=== PATIENT | female | born 1935 | race Caucasian/White ===

== ENCOUNTER 2017-08-30 15:57 | Outpatient (CLI) | payer MEDICARE, BC ==
--- NOTE | 2017-08-30 16:40 | ULT ---
LEFT LOWER EXTREMITY VENOUS ULTRASOUND WITH DOPPLER: History Left lower extremity edema. COMPARISON: None. TECHNIQUE: Quinonez scale, color flow, Doppler imaging with spectral waveform analysis of the left lower extremity v enous system. FINDINGS: There is compressibility, presence of flow, and augmentation of the common femoral vein, femoral vein , and popliteal vein. There is flow in the greater saphenous vein, profunda vein, and posterior tibi al vein. IMPRESSION: No evidence of thrombus in the left lower extremity deep venous system. POS: [facility]
== END 2017-08-30 15:58 | disposition home or self-care (01) ==
LOC: ULT 15:57
PROVIDERS: ATTEND Family Medicine
DX: R60.0 Localized edema (principal)

== ENCOUNTER 2017-09-09 10:26 | Outpatient (CLI) | payer MEDICARE, BC | END 2017-09-09 10:27 | disposition home or self-care (01) | LOC: BICRAD 10:26 | PROVIDERS: ATTEND Family Medicine | DX: S93.602A Unspecified sprain of left foot, initial encounter (principal) ==

== ENCOUNTER 2018-05-19 10:12 | Outpatient (CLI) | payer MEDICARE, BC ==
--- NOTE | 2018-05-19 10:50 | RAD ---
LUMBAR SPINE THREE VIEWS: History: Fall. Back injury. Comparison: MRI exam from 11-18-12 FINDINGS: There are five lumbar type vertebra. Severe rightward convex rotatory scoliotic curvature is apparent . Partial compression of T12 is greater than on the 2013 MRI exam. Mild compression of L1 and L2, fav ored to be chronic. Prominent osteophytosis throughout the vertebral bodies and facets. Osseous struc tures are demineralized. IMPRESSION: 1. Multilevel vertebral compressions of the lower thoracic and upper lumbar spine. Age indeterminate. Severe degenerative changes preclude optimal evaluation. Vertebral plana is suspected at T12. 2. Osteoporosis. POS: [facility]
== END 2018-05-19 10:13 | disposition home or self-care (01) ==
LOC: BICRAD 10:12
PROVIDERS: ATTEND Family Medicine
DX: M54.5 Low back pain (principal); M81.0 Age-related osteoporosis without current pathological fracture; G95.20 Unspecified cord compression
CPT/HCPCS: 72080

== ENCOUNTER 2018-10-14 09:00 | Outpatient (CLI) | payer BC, MEDICARE ==
--- NOTE | 2018-10-14 09:42 | RAD ---
CHEST TWO VIEWS: HISTORY: Heart murmur. FINDINGS: The heart size appears slightly enlarged. There are atherosclerotic changes of the aorta. The lungs are clear of infiltrates. There is scoliotic change in the spine. The bones are demineralized. The re are some multilevel compression changes noted. IMPRESSION: 1. Cardiomegaly. 2. Severe scoliosis. POS: [facility]
== END 2018-10-14 09:01 | disposition home or self-care (01) ==
LOC: RAD 09:00
PROVIDERS: ATTEND Internal Medicine Cardiovascular Disease
DX: R01.1 Cardiac murmur, unspecified (principal); I35.1 Nonrheumatic aortic (valve) insufficiency; I51.7 Cardiomegaly; M41.9 Scoliosis, unspecified
CPT/HCPCS: 36415; 71046; 80053; 80061

== ENCOUNTER 2019-12-20 14:08 | Outpatient (CLI) | payer BC, MEDICARE | END 2019-12-20 14:09 | disposition home or self-care (01) | LOC: CTENTCT 14:08 | PROVIDERS: ATTEND Specialist | DX: J34.89 Other specified disorders of nose and nasal sinuses (principal) | CPT/HCPCS: 70486 ==

== ENCOUNTER 2021-02-21 13:27 | Inpatient (IN) | payer OTHER, MEDICARE, BC ==
[2021-02-21] MEDS ORDERED: Ondansetron PF 4 MG/2 ML Vial IVP PRN (14:47)
[2021-02-21] MEDS ORDERED: Dextrose 50% Abboject 50 ML SYRINGE SLOW IVP PRN (14:47)
[2021-02-21] MEDS ORDERED: Ondansetron ODT 4 MG TAB PO PRN (14:47)
[2021-02-21] MEDS ORDERED: Dextrose 5% in Water 1,000 ML IV PRN (14:47)
[2021-02-21] MEDS ORDERED: hydrALAZINE 20 MG/ML VIAL SLOW IVP PRN (14:47)
[2021-02-21] MEDS ORDERED: Sodium Chloride 0.9% 1,000 ML IV SCH (15:00)
[2021-02-21 15:33] VITALS: BMI 18.0
[2021-02-21 15:46] LABS: ALT (SGPT) 12 U/L (8-55); AST (SGOT) 19 U/L (5-34); Alkaline Phosphatase 55 U/L (40-110); Anion Gap 15 mmol/L (10-20); BUN (Urea Nitrogen) 16 mg/dL (9.8-20.1); Bilirubin, Total 0.6 mg/dL (0.2-1.2); Calc. Creatinine Clearance 43 mL/min (70-130); Carbon Dioxide 19 mmol/L (23-31); Chloride 109 mmol/L (98-107); Globulin 1.7 g/dL (2.4-3.5); Glucose 172 mg/dL (83-110); Phosphorus 3.8 mg/dL (2.3-4.7); Protein, Total 4.7 g/dL (5.8-8.1); Sodium 139 mmol/L (136-145)
[2021-02-21 16:39] LABS: #Lymphocytes 0.8 thou/uL (1.20-3.40); #Monocytes 0.8 thou/uL (0.11-0.59); #Neutrophils 16.1 thou/uL (1.40-6.50); %Basophils 0.1 % (0.0-1.0); %Eosinophils 0.1 % (0.0-10.0); %Lymphocytes 4.5 % (21.0-51.0); %Monocytes 4.4 % (0.0-10.0); Hemoglobin 8.3 g/dL (12.0-16.0); Mean Corpuscular Hemoglobin 32.8 pg (27.0-31.0); Mean Corpuscular Volume 99.3 fL (78.0-98.0); Mean Platelet Volume 7.2 fL (7.4-10.4); Platelet Count 232 thou/uL (130-400); RBC Distribution Width 11.3 % (11.5-14.5); Red Blood Cell (RBC) Count 2.54 mill/uL (4.20-5.40); White Blood Cell (WBC) Count 17.7 thou/uL (4.8-10.8)
[2021-02-21] MEDS ORDERED: Morphine 4 MG/ML VIAL SLOW IVP PRN (16:43)
[2021-02-21 16:56] LABS: INR-International Normal Ratio 1.2; Prothrombin Time 15.7 sec (12.0-14.7)
[2021-02-21 16:57] LABS: PTT 25.9 sec (22.9-36.1)
[2021-02-21] MEDS: Sodium Chloride 0.9% 1,000 ML IV SCH (19:09)
[2021-02-21] MEDS: Famotidine 20 MG TAB PO SCH (22:06)
[2021-02-22] MEDS: Sodium Chloride 0.9% 1,000 ML IV SCH (02:37)
[2021-02-22 04:33] LABS: ALT (SGPT) 11 U/L (8-55); AST (SGOT) 21 U/L (5-34); Albumin 2.8 g/dL (3.4-4.8); Alkaline Phosphatase 45 U/L (40-110); Anion Gap 14 mmol/L (10-20); BUN (Urea Nitrogen) 21 mg/dL (9.8-20.1); Bilirubin, Total 0.8 mg/dL (0.2-1.2); Calc. Creatinine Clearance 45 mL/min (70-130); Calcium 7.9 mg/dL (7.8-10.44); Carbon Dioxide 19 mmol/L (23-31); Chloride 109 mmol/L (98-107); Globulin 1.6 g/dL (2.4-3.5); Glucose 91 mg/dL (83-110); Magnesium 1.8 mg/dL (1.6-2.6); Potassium 4.1 mmol/L (3.5-5.1); Protein, Total 4.4 g/dL (5.8-8.1); Sodium 138 mmol/L (136-145)
[2021-02-22 04:35] LABS: #Lymphocytes 1.4 thou/uL (1.20-3.40); #Monocytes 0.7 thou/uL (0.11-0.59); #Neutrophils 2.7 thou/uL (1.40-6.50); %Basophils 0.7 % (0.0-1.0); %Eosinophils 0.6 % (0.0-10.0); %Lymphocytes 28.3 % (21.0-51.0); %Monocytes 14.5 % (0.0-10.0); %Neutrophils 55.9 % (42.0-75.0); Mean Corpuscular HGB CONC 33.5 g/dL (32.0-36.0); Mean Corpuscular Hemoglobin 32.3 pg (27.0-31.0); Mean Corpuscular Volume 96.3 fL (78.0-98.0); Mean Platelet Volume 7.6 fL (7.4-10.4); Platelet Count 180 thou/uL (130-400); RBC Distribution Width 12.7 % (11.5-14.5); Red Blood Cell (RBC) Count 2.49 mill/uL (4.20-5.40); White Blood Cell (WBC) Count 4.9 thou/uL (4.8-10.8)
[2021-02-22] MEDS: Ascorbic Acid 500 mg Chewable Tablet PO SCH ×2 (08:48→21:07)
[2021-02-22] MEDS: Ferrous Sulfate 325 MG TAB PO SCH ×2 (08:48→18:02)
[2021-02-22] MEDS: Polyethylene Glycol 3350 17 GM Packet PO SCH (18:02)
[2021-02-22] MEDS: Senokot S 8.6-50 MG TAB PO SCH ×2 (18:03→21:07)
[2021-02-22 18:34] LABS: #Basophils 0.1 thou/uL (0.0-0.2); #Eosinphils 0.1 thou/uL (0.0-0.7); #Lymphocytes 1.5 thou/uL (1.20-3.40); #Monocytes 0.6 thou/uL (0.11-0.59); #Neutrophils 3.1 thou/uL (1.40-6.50); %Basophils 1.1 % (0.0-1.0); %Eosinophils 1.8 % (0.0-10.0); %Lymphocytes 27.5 % (21.0-51.0); %Monocytes 11.2 % (0.0-10.0); %Neutrophils 58.4 % (42.0-75.0); Hemoglobin 7.9 g/dL (12.0-16.0); Mean Corpuscular HGB CONC 35.2 g/dL (32.0-36.0); Mean Corpuscular Hemoglobin 33.6 pg (27.0-31.0); Mean Corpuscular Volume 95.4 fL (78.0-98.0); Mean Platelet Volume 7.2 fL (7.4-10.4); Platelet Count 176 thou/uL (130-400); RBC Distribution Width 12.4 % (11.5-14.5); Red Blood Cell (RBC) Count 2.36 mill/uL (4.20-5.40); White Blood Cell (WBC) Count 5.4 thou/uL (4.8-10.8)
[2021-02-22] MEDS ORDERED: traMADol HCl 50 MG TAB PO PRN ×2 (19:03)
[2021-02-22] MEDS: Acetaminophen 325 MG TAB PO SCH (21:07)
[2021-02-22] MEDS: Famotidine 20 MG TAB PO SCH (21:07)
[2021-02-23] MEDS: Acetaminophen 325 MG TAB PO SCH ×4 (02:38→21:11)
[2021-02-23 06:41] LABS: Hemoglobin 7.4 g/dL (12.0-16.0)
[2021-02-23] MEDS: Polyethylene Glycol 3350 17 GM Packet PO SCH (08:13)
[2021-02-23] MEDS: Ferrous Sulfate 325 MG TAB PO SCH ×2 (08:13→17:09)
[2021-02-23] MEDS: Senokot S 8.6-50 MG TAB PO SCH ×2 (08:13→21:13)
[2021-02-23] MEDS: Ascorbic Acid 500 mg Chewable Tablet PO SCH ×2 (08:13→21:11)
[2021-02-23] MEDS: Famotidine 20 MG TAB PO SCH (21:11)
[2021-02-24] MEDS: Acetaminophen 325 MG TAB PO SCH ×3 (03:29→14:17)
[2021-02-24 06:18] LABS: #Basophils 0.1 thou/uL (0.0-0.2); #Eosinphils 0.1 thou/uL (0.0-0.7); #Monocytes 0.5 thou/uL (0.11-0.59); #Neutrophils 4.3 thou/uL (1.40-6.50); %Basophils 0.9 % (0.0-1.0); %Eosinophils 2.3 % (0.0-10.0); %Lymphocytes 16.9 % (21.0-51.0); %Monocytes 8.4 % (0.0-10.0); %Neutrophils 71.5 % (42.0-75.0); Hemoglobin 7.7 g/dL (12.0-16.0); Mean Corpuscular HGB CONC 34.6 g/dL (32.0-36.0); Mean Corpuscular Hemoglobin 33.2 pg (27.0-31.0); Mean Corpuscular Volume 95.7 fL (78.0-98.0); Mean Platelet Volume 7.5 fL (7.4-10.4); Platelet Count 211 thou/uL (130-400); RBC Distribution Width 11.8 % (11.5-14.5); Red Blood Cell (RBC) Count 2.31 mill/uL (4.20-5.40)
[2021-02-24] MEDS: Senokot S 8.6-50 MG TAB PO SCH (07:59)
[2021-02-24] MEDS: Ascorbic Acid 500 mg Chewable Tablet PO SCH (07:59)
[2021-02-24] MEDS: Ferrous Sulfate 325 MG TAB PO SCH (07:59)
[2021-02-24] MEDS ORDERED: Polyethylene Glycol 3350 17 GM Packet PO SCH (09:00)
[2021-02-24 12:12] VITALS: BP 155/83; TEMP 97.4
[2021-02-24] MEDS ORDERED: Ferrous Sulfate 325 MG TAB PO SCH (21:00)
== END 2021-02-24 14:45 | disposition home or self-care (01) | DRG 605 ==
LOC: SURG A 13:27 → CCU 16:00 → SURG A 02-22 05:18
PROVIDERS: ADMIT Surgery; ATTEND Surgery
PROC: 30233N1 Transfusion of Nonautologous Red Blood Cells into Peripheral Vein, Percutaneous Approach (ICD-10-PCS; principal; 2021-02-21)
DX: S30.1XXA Contusion of abdominal wall, initial encounter (principal); D62 Acute posthemorrhagic anemia; I10 Essential (primary) hypertension; H35.30 Unspecified macular degeneration; Z96.641 Presence of right artificial hip joint; W01.0XXA Fall on same level from slipping, tripping and stumbling without subsequent striking against object, initial encounter
CPT/HCPCS: 36415; 36430; 80053; 82533; 83735; 84100; 85014; 85018; 85025; 85610; 85730; 86850; 86900; 86901; 93005; 93010; J7050; P9016

== ENCOUNTER 2022-06-07 13:23 | Inpatient (IN) | payer OTHER, MEDICARE, BC ==
[2022-06-07] MEDS ORDERED: Dextrose 50% Abboject 50 ML SYRINGE SLOW IVP PRN (18:06)
[2022-06-07] MEDS ORDERED: Dextrose 5% in Water 1,000 ML IV PRN (18:06)
[2022-06-07] MEDS ORDERED: hydrALAZINE 20 MG/ML VIAL SLOW IVP PRN (18:06)
[2022-06-07] MEDS ORDERED: Ondansetron PF 4 MG/2 ML Vial IVP PRN ×2 (18:06→18:15)
[2022-06-07] MEDS ORDERED: Morphine 2 MG/ML VIAL SLOW IVP PRN (18:06)
[2022-06-07] MEDS ORDERED: Ibuprofen 800 MG TAB PO PRN (18:09)
[2022-06-07] MEDS ORDERED: traMADol HCl 50 MG TAB PO PRN ×2 (18:09)
[2022-06-07] MEDS ORDERED: Cyclobenzaprine 10 MG TAB PO PRN (18:09)
[2022-06-07] MEDS ORDERED: Potassium Phosphate 30 MMOL in Sodium Chloride 0.9% 250 ML 250 ML IVPB SCH (18:15)
[2022-06-07] MEDS ORDERED: Acetaminophen 325 MG TAB PO PRN (18:15)
[2022-06-07] MEDS ORDERED: Ondansetron ODT 4 MG TAB SL PRN (18:15)
[2022-06-07] MEDS ORDERED: CEFAZOLIN 2 GM in Sodium Chloride 0.9% 100 ML IVPB SCH (20:00)
[2022-06-07 20:05] VITALS: BMI 19.3
[2022-06-07] MEDS: Famotidine 20 MG TAB PO SCH (20:39)
[2022-06-07] MEDS: Senokot S 8.6-50 MG TAB PO SCH (20:39)
[2022-06-07] MEDS: Acetaminophen 500 MG TAB PO SCH (23:32)
[2022-06-08] MEDS: Acetaminophen 500 MG TAB PO SCH ×4 (06:25→23:45)
[2022-06-08 06:51] LABS: #Basophils 0.1 thou/uL (0.0-0.2); #Eosinphils 0.3 thou/uL (0.0-0.7); #Lymphocytes 0.7 thou/uL (1.20-3.40); #Monocytes 0.6 thou/uL (0.11-0.59); #Neutrophils 7.2 thou/uL (1.40-6.50); %Basophils 0.6 % (0.0-1.0); %Lymphocytes 8.3 % (21.0-51.0); %Monocytes 6.4 % (0.0-10.0); %Neutrophils 81.7 % (42.0-75.0); Hemoglobin 13.4 g/dL (12.0-16.0); Mean Corpuscular HGB CONC 34.3 g/dL (32.0-36.0); Mean Corpuscular Hemoglobin 34.2 pg (27.0-31.0); Mean Corpuscular Volume 99.7 fl (78.0-98.0); Platelet Count 207 10x3/uL (130-400); RBC Distribution Width 11.7 % (11.5-14.5); Red Blood Cell (RBC) Count 3.93 mill/uL (4.20-5.40); White Blood Cell (WBC) Count 8.8 10x3/uL (4.8-10.8)
[2022-06-08] MEDS ORDERED: Sodium Chloride 0.9% 1,000 ML IV SCH (07:00)
[2022-06-08 07:10] LABS: Anion Gap 12 mmol/L (10-20); BUN (Urea Nitrogen) 14 mg/dL (9.8-20.1); Calc. Creatinine Clearance 56 mL/min (70-130); Calcium 8.7 mg/dL (7.8-10.44); Carbon Dioxide 24 mmol/L (23-31); Chloride 104 mmol/L (98-107); Estimated GFR 88; Glucose 96 mg/dL (83-110); Magnesium 1.8 mg/dL (1.6-2.6); Phosphorus 3.7 mg/dL (2.3-4.7); Potassium 3.7 mmol/L (3.5-5.1); Sodium 136 mmol/L (136-145)
[2022-06-08 07:52] LABS: Bilirubin Negative (Negative); Blood, Urine Negative (Negative); Clarity Turbid (Clear); Glucose, Urine (Dipstick) Normal (Negative); Ketone, Urine Trace mg/dL (Negative); Leukocyte Negative Leu/uL (Negative); Nitrite Negative (Negative); Protein, Urine (Dipstick) 20 mg/dL (Neg-Trace); Specific Gravity, Urine 1.014 (1.002-1.036); Urobilinogen Normal mg/dL (Less than 2); pH, Urine 7.5 (5.0-9.0)
[2022-06-08] MEDS ORDERED: Magnesium 2 GM/50 ML(in water) 2 GM in Premix Bag 1 BAG IVPB SCH (08:00)
[2022-06-08 08:02] LABS: SARS-CoV-2 NAA Rapid Test Not Detected (NotDetected)
[2022-06-08] MEDS: Polyethylene Glycol 3350 17 GM Packet PO SCH (08:56)
[2022-06-08] MEDS: Famotidine 20 MG TAB PO SCH ×2 (08:56→20:45)
[2022-06-08] MEDS: Senokot S 8.6-50 MG TAB PO SCH ×2 (08:56→20:46)
[2022-06-08] MEDS ORDERED: Potassium Phosphate 15 MMOL in Sodium Chloride 0.9% 250 ML 250 ML IVPB SCH (09:00)
[2022-06-08] MEDS ORDERED: Phenylephrine 10 MG/ML VIAL ONE (10:49)
[2022-06-08] MEDS ORDERED: fentaNYL PF 100 MCG/2 ML SYRINGE ONE (10:49)
[2022-06-08] MEDS ORDERED: Sodium Chloride 0.9% 100 ML ONE (11:55)
[2022-06-08] MEDS ORDERED: CEFAZOLIN 2 GM VIAL ONE (11:55)
[2022-06-08] MEDS ORDERED: Ketamine 50 MG/ML (10ML VIAL) ONE (12:05)
[2022-06-08] MEDS ORDERED: ePHEDrine 50 MG/ML VIAL ONE (13:18)
[2022-06-08] MEDS ORDERED: NEOSTIGMINE 3 MG/3 ML SYR 3 MG/3 ML SYRINGE ONE (13:18)
[2022-06-08] MEDS ORDERED: Glycopyrrolate 0.2 MG/ML 5 ML SYRINGE ONE (13:18)
[2022-06-08] MEDS ORDERED: Dexamethasone 20 MG/5 ML VIAL ONE (13:18)
[2022-06-08] MEDS ORDERED: Rocuronium Bromide 10 MG/ML (10ML VIAL) ONE (13:18)
[2022-06-08] MEDS ORDERED: Ondansetron PF 4 MG/2 ML Vial ONE (13:18)
[2022-06-08] MEDS ORDERED: PROPOFOL 200 MG/20 ML VIAL ONE (13:18)
[2022-06-08] MEDS ORDERED: Ondansetron HCl/PF 4 MG/2 ML Vial IVP PRN (15:13)
[2022-06-08] MEDS ORDERED: HYDROmorphone 2 MG/ML VIAL SLOW IVP PRN (15:13)
[2022-06-08] MEDS ORDERED: Fentanyl 100 MCG/2 ML VIAL ONE (15:36)
[2022-06-08] MEDS: CEFAZOLIN 2 GM in Sodium Chloride 0.9% 100 ML IVPB SCH (20:51)
[2022-06-09] MEDS: CEFAZOLIN 2 GM in Sodium Chloride 0.9% 100 ML IVPB SCH (04:45)
[2022-06-09] MEDS: Acetaminophen 500 MG TAB PO SCH ×3 (05:52→18:25)
[2022-06-09 06:04] LABS: #Eosinphils 0.1 thou/uL (0.0-0.7); #Lymphocytes 0.8 thou/uL (1.20-3.40); #Monocytes 0.8 thou/uL (0.11-0.59); #Neutrophils 8.5 thou/uL (1.40-6.50); %Basophils 0.3 % (0.0-1.0); %Eosinophils 0.5 % (0.0-10.0); %Lymphocytes 7.5 % (21.0-51.0); %Monocytes 7.8 % (0.0-10.0); Hemoglobin 11.7 g/dL (12.0-16.0); Mean Corpuscular HGB CONC 33.2 g/dL (32.0-36.0); Mean Corpuscular Hemoglobin 33.3 pg (27.0-31.0); Mean Platelet Volume 7.8 fL (7.4-10.4); Platelet Count 199 10x3/uL (130-400); RBC Distribution Width 11.6 % (11.5-14.5); Red Blood Cell (RBC) Count 3.51 mill/uL (4.20-5.40); White Blood Cell (WBC) Count 10.2 10x3/uL (4.8-10.8)
[2022-06-09 06:49] LABS: Anion Gap 15 mmol/L (10-20); BUN (Urea Nitrogen) 24 mg/dL (9.8-20.1); Calc. Creatinine Clearance 41 mL/min (70-130); Calcium 8.3 mg/dL (7.8-10.44); Carbon Dioxide 18 mmol/L (23-31); Chloride 107 mmol/L (98-107); Estimated GFR 69; Glucose 146 mg/dL (83-110); Magnesium 2.1 mg/dL (1.6-2.6); Phosphorus 4.5 mg/dL (2.3-4.7); Potassium 4.4 mmol/L (3.5-5.1); Sodium 136 mmol/L (136-145)
[2022-06-09] MEDS ORDERED: hydrALAZINE 20 MG/ML VIAL SLOW IVP PRN (09:33)
[2022-06-09] MEDS: Polyethylene Glycol 3350 17 GM Packet PO SCH (10:26)
[2022-06-09] MEDS: Senokot S 8.6-50 MG TAB PO SCH ×2 (10:27→20:47)
[2022-06-09] MEDS: Famotidine 20 MG TAB PO SCH ×2 (10:27→20:48)
[2022-06-09] MEDS: Aspirin 81 mg Enteric Coated Tablet PO SCH ×2 (10:27→20:47)
[2022-06-10] MEDS: Acetaminophen 500 MG TAB PO SCH ×3 (00:21→12:40)
[2022-06-10] MEDS ORDERED: Bisacodyl 10 MG SUPP PR PRN (08:16)
[2022-06-10] MEDS: Famotidine 20 MG TAB PO SCH (10:12)
[2022-06-10] MEDS: Senokot S 8.6-50 MG TAB PO SCH (10:14)
[2022-06-10] MEDS: Aspirin 81 mg Enteric Coated Tablet PO SCH (10:14)
[2022-06-10] MEDS: Polyethylene Glycol 3350 17 GM Packet PO SCH (10:14)
[2022-06-10 15:59] VITALS: BP 144/89; TEMP 98.5
== END 2022-06-10 17:29 | disposition home or self-care (01) | DRG 522 ==
LOC: 2NO 13:23 → SURG A 06-08 16:20
PROVIDERS: ADMIT Surgery; ATTEND Surgery
PROC: 0SRS019 Replacement of Left Hip Joint, Femoral Surface with Metal Synthetic Substitute, Cemented, Open Approach (ICD-10-PCS; principal; 2022-06-08)
DX: S72.002A Fracture of unspecified part of neck of left femur, initial encounter for closed fracture (principal); I35.0 Nonrheumatic aortic (valve) stenosis; I10 Essential (primary) hypertension; Z96.641 Presence of right artificial hip joint; M81.0 Age-related osteoporosis without current pathological fracture; Z79.82 Long term (current) use of aspirin; Z79.899 Other long term (current) drug therapy; Z88.8 Allergy status to other drugs, medicaments and biological substances; W01.0XXA Fall on same level from slipping, tripping and stumbling without subsequent striking against object, initial encounter; Z20.822 Contact with and (suspected) exposure to COVID-19; Y92.009 Unspecified place in unspecified non-institutional (private) residence as the place of occurrence of the external cause
CPT/HCPCS: 36415; 70450; 71045; 72170; 72192; 80048; 80053; 81003; 83735; 84100; 84484; 85025; 85610; 85730; 86850; 86900; 86901; 93005; 93010; 93306; C1713; C1776; J1100; J2370; J2405; J2704; J3010; J3475; J3490; J7050; U0002; U0003; U0005

== ENCOUNTER 2022-06-19 09:02 | Outpatient (CLI) | payer MEDICARE, BC | END 2022-06-19 09:03 | disposition home or self-care (01) | LOC: NM 09:02 | PROVIDERS: ATTEND Anesthesiology Pain Medicine | DX: M48.54XA Collapsed vertebra, not elsewhere classified, thoracic region, initial encounter for fracture (principal) | CPT/HCPCS: 78306; A9503 ==